=== PATIENT | female | born 2000 | race Caucasian/White ===

== ENCOUNTER 2022-08-13 11:33 | Emergency (ER) | payer OTHER, SELFPAY ==
--- NOTE | ~2022-08-13 | XR_ITS ---
EXAMINATION: XR foot RT min 3V DATE: 08/13/2022 12:01 INDICATION: Right foot pain. Fall. TECHNIQUE: 4 views of right foot were obtained. COMPARISON: None. FINDINGS: Bone alignment is normal. Joint spaces are well maintained. There is a small calcification dorsal to navicular. IMPRESSION: 1. Small calcification dorsal to navicular that may be a small acute avulsion fracture or chronic fin ding. Reviewed, dictated and finalized at location A. NEERING OFFICER IMPRESSION: 1. Small calcification dorsal to navicular that may be a small acute avulsion f racture or chronic finding.
--- NOTE | ~2022-08-13 | XR_ITS ---
EXAMINATION: XR ankle RT min 3V DATE: 08/13/2022 12:01 INDICATION: Right ankle pain. Fall. TECHNIQUE: 4 views of right ankle were obtained. COMPARISON: None. FINDINGS: Bone alignment is normal. Joint spaces are normal. There is a small calcification dorsal to navicular. IMPRESSION: 1. Small calcification dorsal to navicular, which may be an acute avulsion fracture or a chronic find ing. Reviewed, dictated and finalized at location A. [employer] IMPRESSION: 1. Small calcification dorsal to navicular, which may be an acute avulsion frac ture or a chronic finding.
[2022-08-13 11:40] VITALS: BP 120/83; PULSE 99; RESP 16; TEMP 36.6; O2SAT 99
[2022-08-13 11:45] VITALS: BP 120/83; PULSE 99; RESP 16; TEMP 36.6; O2SAT 99
--- NOTE | 2022-08-13 11:59 | ED.LOWEXIN ---
HPI - Extremity Injury (Lower) General Chief Complaint: Extremity Injury, Lower Stated Complaint: right ankle/foot pain Time Seen by Provider: 08/13/22 11:45 Source: patient Mode of arrival: ambulatory Limitations: no limitations History of Present Illness HPI Narrative: Sandra is a 22-year-old female patient presenting to the clinic today with complaints right ankle and foot pain x1 day. She reports that she fell at school yesterday down some steps and injured her right ankle/foot. Pain is worse with ambulation/weight-bearing. She denies hitting her head or any loss of consciousness when falling Related Data Home Medications Medication Instructions Recorded Confirmed bupropion HCl 150 mg 24 hr tablet, mg PO 08/13/22 extended release duloxetine 30 mg capsule,delayed mg PO 08/13/22 release norethindrone 1 mg-ethinyl tablet 08/13/22 estradiol 20 mcg (24)-iron 75 mg (4) tablet () spironolactone 100 mg tablet mg 08/13/22 tretinoin 0.025 % topical cream applic topical 08/13/22 Allergies Allergy/AdvReac Type Severity Reaction Status Date / Time No Known Allergies Allergy Mild Verified 08/13/22 11:43 Review of Systems Review of Systems: Pertinent positives per HPI. Patient denies any fever, chills, rash, headache, visual changes, dizziness, cough, runny nose, sore throat, shortness of breath, chest pain, palpitations, nausea, vomiting, diarrhea, constipation, abdominal pain, or any urinary issues. PMFSH Comments At the time of my signature, I reviewed and agree with the nursing past medical, surgical, social, and family history. There is no relevant family history pertinent to the patient complaint. Exam Narrative: General: Well-developed, well nourished, in no apparent distress Head: Normocephalic, atraumatic. Cardio: Regular rate and rhythm, s1 and s2 normal, no murmur appreciated. Resp: Clear to auscultation bilaterally, no rhonchi, rales, wheezing or rubs. Musculoskeletal: No deformity, tender to palpation over the right lateral and anterior ankle joint as well as the dorsal foot, grossly normal range of motion, pain with dorsal flexion, muscle strength strong and equal, peripheral pulse strong, no edema, no cyanosis, normal gait and station Course Course Emergency Course: Portions of this record may have been created with voice recognition software. Level of Care: Express Care Visit Vital Signs Vital signs: Vital Signs Temperature 36.6 C 08/13/22 11:40 Pulse Rate 99 08/13/22 11:40 Respiratory Rate 16 08/13/22 11:40 Blood Pressure 120/83 08/13/22 11:40 Pulse Oximetry 99 08/13/22 11:40 Oxygen Delivery Room Air 08/13/22 11:40 Temperature 36.6 C 08/13/22 11:45 Pulse Rate 99 08/13/22 11:45 Respiratory Rate 16 08/13/22 11:45 Blood Pressure 120/83 08/13/22 11:45 Pulse Oximetry 99 08/13/22 11:45 Oxygen Delivery Room Air 08/13/22 11:45 Vital signs reviewed MDM - Extremity Injury (Lower) MDM Narrative Medical decision making narrative: At the time of visit patient is resting comfortably on the exam table. X-ray was performed of the right foot and ankle and shows a possible avulsion fracture to the navicular bone of the right foot. Will place the patient in a short-leg OCL and give her crutches and have her follow-up with orthopedics next week. Supportive measures were discussed with the patient she voiced understanding of discharge instructions and agrees to treatment plan. Differential Diagnosis Differential diagnosis: Likely ankle sprain and strain, ankle fracture and other (Foot fracture, foot sprain, soft tissue injury) Discharge Plan Discharge Clinical Impression: Avulsion fracture of navicular bone of foot Qualifiers: Encounter type: initial encounter Fracture type: closed Laterality: right Qualified Code(s): S92.251A - Displaced fracture of navicular [scaphoid] of right foot, initial encounter for closed fracture Patient Di
== END 2022-08-13 12:45 | disposition home or self-care (01) ==
PROVIDERS: Emergency Provider Nurse Practitioner Family; PCP Family Medicine
DX: S92.251A Displaced fracture of navicular [scaphoid] of right foot, initial encounter for closed fracture (principal); W10.9XXA Fall (on) (from) unspecified stairs and steps, initial encounter; Y92.219 Unspecified school as the place of occurrence of the external cause
CPT/HCPCS: 29515; 73610; 73630; 99214; G0463